=== PATIENT | male | born 1935 | race Caucasian/White ===

== ENCOUNTER → 2017-01-26 | Outpatient (CLI) | payer MEDICARE, OTHER ==
[~2017-01-26] MED LIST: ATACAND16 MG PO; Ativan; CALCIUM CITRATE1 TA5 PO; CENTRUM SILVER1 TA1 PO; ENABLEX15 MG PO; FLEXERIL10 MG PO; LEXAPRO10 MG PO; LORTAB 5/500 501 TAB PO; NAMENDA10 MG PO; Namenda; PERCOCET 325 MG1 TA2 PO; PROPRANOLOL; PROPRANOLOL10 MG PO; VITAMIN C BUFF500 MG PO; VITAMINS
== END ==
LOC: COL.RAD 09:37
DX: K76.89 Other specified diseases of liver (principal); R79.89 Other specified abnormal findings of blood chemistry

== ENCOUNTER 2017-02-01 13:15 | Outpatient (RCR) | payer MEDICARE, OTHER | END 2017-02-08 09:10 | LOC: MKS.ESL.PT 13:15 | DX: R27.0 Ataxia, unspecified (principal); R25.1 Tremor, unspecified | CPT/HCPCS: G8978-GP; G8979-GP ==

== ENCOUNTER → 2017-07-14 | Outpatient (CLI) | payer MEDICARE ==
[~2017-07-14] MED LIST changes: +CALCIUM CITRAT950 MG PO; +DETROL 2MG TAB2 MG PO; +INDERAL 10MG10 MG PO; +MS CONTIN 330 MG/TAB PO; +NEURONTIN300 MG/CAP PO; +OMEGA-3 1000 MG1 CAP PO; +SINEMET 25/101 UDTAB PO; +VISION VITAMINS1 TA1 PO; +VITAMINC1000TA PO
== END ==
LOC: COL.PUL 10:29
DX: R06.02 Shortness of breath (principal)

== ENCOUNTER 2017-08-19 12:55 | Outpatient (CLI) | payer MEDICARE ==
[2009-05-07 07:19] VITALS: BP 119/78
[~2017-08-19] VITALS: Ht 172.7 cm; Wt 74.0 kg
[~2017-08-19 12:55] MED LIST changes: +ATACAND 16M16 MG/TAB PO; -ATACAND16 MG PO; -CALCIUM CITRATE1 TA5 PO; +CALCIUM CITRATE1 TA7 PO; -CENTRUM SILVER1 TA1 PO; +CENTRUM SILVER1 TAB PO
[2017-08-19 14:08] VITALS: BP 149/75; PULSE 53; TEMP 97.4
[2017-08-19] MEDS ORDERED: INDERAL 10MG10 MG PO (16:11)
[2017-08-19] MEDS ORDERED: EFFEXOR 75M75 MG/TAB PO (16:12)
[2017-08-19] MEDS ORDERED: METHADONE H10 MG/TAB PO (16:13)
[2017-08-19] MEDS ORDERED: ARICEPT10 MG PO (16:13)
[2017-08-19] MEDS ORDERED: MOVANTIK25 MG PO (16:14)
[2017-08-19] MEDS ORDERED: PERCOCET 325 MG1 TA2 PO (16:15)
[2017-08-19] MEDS ORDERED: COLACE 100100 MG/CAP PO (16:15)
[2017-08-19] MEDS ORDERED: MYSOLINE 5050 MG/TAB PO (16:15)
== END 2017-08-19 16:22 | disposition home or self-care (01) ==
LOC: EUO 12:55
DX: N39.41 Urge incontinence (principal)

== ENCOUNTER 2019-08-29 09:59 | Inpatient (IN) | payer MEDICARE ==
[~2019-08-29] VITALS: Ht 175.3 cm; Wt 84.0 kg
[~2019-08-29 09:59] MED LIST changes: +ARICEPT10 MG PO; +COLACE 100100 MG/CAP PO; +EFFEXOR XR75 MG/CAP PO; +KRILL OIL 1,001 EAC1 PO; +METHADONE H10 MG/TAB PO; +MOVANTIK25 MG PO; +MYSOLINE 5050 MG/TAB PO
[2019-08-29 10:57] LABS: INR 1.1 (0.8-3.0); PROTHROMBIN TIME 13.4 SECONDS (9.7-12.8)
[2019-08-29 11:00] LABS: PARTIAL THROMBOPLASTIN TIME 29.8 SECONDS (26.0-37.0)
[2019-08-29 11:03] LABS: ALANINE AMINOTRANSFERASE 7 U/L (4-49); ALBUMIN 3.6 gm/dL (3.5-5.0); ALKALINE PHOSPHATASE 172 U/L (50-136); ANION GAP 6 mmol/L (7-16); AST,SGOT 51 U/L (15-37); BLOOD UREA NITROGEN 8 mg/dL (9-20); CALCIUM 8.6 mg/dL (8.4-10.2); CARBON DIOXIDE 35 mmol/L (22-30); CHLORIDE 94 mmol/L (98-107); CREATININE, serum 1.06 (0.66-1.25); GLUCOSE 117 mg/dL (74-106); LIPASE 371 U/L (23-300); POTASSIUM 3.2 mmol/L (3.4-5.0); SODIUM 134 mmol/L (137-145); TOTAL PROTEIN 7.1 gm/dL (6.4-8.2)
[2019-08-29 11:14] LABS: TROPONIN-I < 0.012 ng/mL (0.000-0.035)
[2019-08-29] MEDS ORDERED: MYSOLINE 5050 MG/TAB PO (11:27)
[2019-08-29] MEDS ORDERED: DITROPAN XL 5MG5 M1 PO (11:30)
[2019-08-29] MEDS ORDERED: ARICEPT10 MG PO (11:30)
[2019-08-29 11:31] LABS: BASO % 0.3 % (0.0-2.0); EOS # 0.4 (0.0-0.7); EOS % 3.9 % (0-4.0); GRAN # 5.2 (1.4-6.5); GRAN % 57.7 % (42.2-75.2); HEMATOCRIT 42.6 % (42.0-52.0); HEMOGLOBIN 14.1 g/dl (13.5-18.0); LYMPH # 2.3 (1.2-3.4); LYMPH % 26.1 % (20.0-51.0); MEAN CELL VOLUME 98 fl (80.0-100.0); MEAN CORPUSCULAR HEMOGLOBIN 32 pg (27.0-31.0); MEAN CORPUSCULAR HGB CONC 33 g/dl (33.0-37.0); MEAN PLATELET VOLUME 10.8 fl (7.4-10.4); MONO % 11.6 % (1.7-9.3); PLATELET COUNT 122 K/mm3 (130-400); RED BLOOD COUNT 4.35 M/mm3 (4.20-5.60); REDCELL DISTRIBUTION WIDTH-CV 13.4 % (11.5-14.5)
[2019-08-29] MEDS ORDERED: FLOMAX 0.40.4 MG/CAP PO (11:31)
[2019-08-29] MEDS ORDERED: NEURONTIN100 MG/CAP PO (11:31)
[2019-08-29] MEDS ORDERED: KLONOPIN 0.5MG0.5 MG PO (11:32)
[2019-08-29] MEDS ORDERED: REQUIP 0.5MG0.5 MG PO (11:33)
[2019-08-29 12:13] LABS: COLLECTION METHOD CLEAN CATCH
[2019-08-29 12:20] LABS: MUCOUS Present /lpf; PH 6 (5-8); SQUAMOUS EPITHELIAL None Seen /hpf; URINE APPEARANCE Clear; URINE BACTERIA None Seen /hpf; URINE BILIRUBIN Negative (NEGATIVE); URINE BLOOD Negative (NEGATIVE); URINE COLOR Yellow; URINE GLUCOSE Negative (NEGATIVE); URINE KETONE Trace (NEGATIVE); URINE LEUKOCYTE ESTERASE Negative (NEGATIVE); URINE NITRATE Negative (NEGATIVE); URINE PROTEIN(semi-quant) Negative (NEGATIVE); URINE RBC None Seen /hpf; URINE UROBILINOGEN Negative (NEGATIVE)
--- NOTE | 2019-08-29 16:51 | NUR ---
REPORT FROM MUNA MUD JACK OPERATOR. PT TO ROOM 355.
[2019-08-29 17:41] VITALS: BP 166/87; PULSE 60; TEMP 98.5
--- NOTE | 2019-08-29 17:52 | NUR ---
pt to room 355 from ED. ASSEMENTS COMPLETE PT ORIENTED TO ROOM. RESTING QUIETLY IN BED, KNEE IMMOBILIZER IN PLACE TO RIGHT KNEE.
[2019-08-29 19:52] VITALS: BP 160/78; PULSE 63; TEMP 97.6
--- NOTE | 2019-08-29 20:00 | NUR ---
Report received. Assumed care for night time nanny. Assessment complete. VS stable. Resting in bed with eyes closed. A&O to self. Confused with one to two word answers-very drowsy. Right lower extremity in immobolizer. Denies pain. Right AC IV-NS@80mls/hr. Head of bead at 30 degrees. Plan of care discussed for this shift to inlcude HS meds/pain meds. Call light in reach. Will monitor.
[2019-08-30] VITALS (7 sets, daily range): BP systolic 121–191; BP diastolic 72–96; PULSE 59–78; TEMP 97.2–98.6
--- NOTE | 2019-08-30 05:11 | NUR ---
Dr Kelley notified of low heart rate on tele. New orders received to decrease rate to 40 on notification. Notified telemetry tech of decrease and order placed.
[2019-08-30 06:39] LABS: BASO % 0.4 % (0.0-2.0); EOS # 0.3 (0.0-0.7); EOS % 3.5 % (0-4.0); GRAN # 4.1 (1.4-6.5); GRAN % 54.6 % (42.2-75.2); HEMATOCRIT 43.9 % (42.0-52.0); HEMOGLOBIN 14.2 g/dl (13.5-18.0); LYMPH # 2.5 (1.2-3.4); LYMPH % 32.5 % (20.0-51.0); MEAN CELL VOLUME 99 fl (80.0-100.0); MEAN CORPUSCULAR HEMOGLOBIN 32 pg (27.0-31.0); MEAN CORPUSCULAR HGB CONC 32 g/dl (33.0-37.0); MEAN PLATELET VOLUME 10.4 fl (7.4-10.4); MONO # 0.7 (0.1-0.6); MONO % 8.9 % (1.7-9.3); PLATELET COUNT 111 K/mm3 (130-400); RED BLOOD COUNT 4.44 M/mm3 (4.20-5.60); REDCELL DISTRIBUTION WIDTH-CV 13.2 % (11.5-14.5)
[2019-08-30 06:50] LABS: CALCIUM 8.6 mg/dL (8.4-10.2); CREATININE, serum 0.99 (0.66-1.25); POTASSIUM 4.4 mmol/L (3.4-5.0)
--- NOTE | 2019-08-30 09:20 | NUR ---
Pt sleeping upon entry, easily awakened, no C/O pain at this time. Shift assessments complete, left Pt call light in reach, bed in lowest position, bed alarm on.
--- NOTE | 2019-08-30 10:21 | NUR ---
Due to the patient's history of dementia, VINCE contacted the patient's , Bety ([phone]) to complete initial intake. The patient lives in [place] with Bety. The patient had a walker and receives assistance with ADLs. The patient's PCP is Dr. Vargas and patient receives medications from [facility]. The patient has advanced directives in the EMR and designate Bety. The patient may be needing post acute rehab due to his right patellar fx. VINCE discussed Medicare.gov's list of post acute rehab facilites with Bety. Bety states the patient would not like to go to a correction for rehab. The first choice is [facility] and second choice is [facility]. Referrals sent. VINCE informed Bety if the patient goes to [facility] the family will have to provide transportation, she is willing to transport. Awaiting responses.
[2019-08-30] MEDS ORDERED: NAMENDA 10MG TA10 MG PO (11:45)
--- NOTE | 2019-08-30 18:33 | NUR ---
Pt resting in the room today, no C/O pain, takes medications without swallowing issues, VS have remained stable.
--- NOTE | 2019-08-30 19:11 | NUR ---
PATIENT RESTING IN BED DURING CHANGE OF SHIFT REPORT FROM DAY SHIFT NURSEESPINOZA. PATIENT WITH NO NEEDS REPORTED. BED ALARM ON.
--- NOTE | 2019-08-30 22:14 | NUR ---
PATIENT REQUESTING TYLENOL FOR PAIN, PATIENT ALREADY TAKING METHADONE.
--- NOTE | 2019-08-30 23:00 | NUR ---
PATIENT RESTING WITH EYES CLOSED, DOES NOT AWAKEN WHEN ROOM ENTERED BY STAFF, BREATHING OBSERVED NONLABORED AND EVEN. BED ALARM ON.
[2019-08-31 01:20] VITALS: BP 112/66; PULSE 68; TEMP 98.2
[2019-08-31 04:02] VITALS: BP 153/84; PULSE 67; TEMP 98.1
[2019-08-31 06:41] LABS: BASO % 0.5 % (0.0-2.0); EOS # 0.3 (0.0-0.7); EOS % 4.1 % (0-4.0); GRAN # 3.3 (1.4-6.5); GRAN % 51.8 % (42.2-75.2); HEMOGLOBIN 12.3 g/dl (13.5-18.0); LYMPH # 2.1 (1.2-3.4); LYMPH % 33.5 % (20.0-51.0); MEAN CELL VOLUME 97 fl (80.0-100.0); MEAN CORPUSCULAR HEMOGLOBIN 33 pg (27.0-31.0); MEAN CORPUSCULAR HGB CONC 33 g/dl (33.0-37.0); MEAN PLATELET VOLUME 10.6 fl (7.4-10.4); MONO # 0.6 (0.1-0.6); MONO % 9.9 % (1.7-9.3); PLATELET COUNT 132 K/mm3 (130-400); RED BLOOD COUNT 3.79 M/mm3 (4.20-5.60); REDCELL DISTRIBUTION WIDTH-CV 13.4 % (11.5-14.5)
[2019-08-31 06:43] LABS: HEMATOCRIT 36.8 % (42.0-52.0)
[2019-08-31 06:46] LABS: CALCIUM 8.2 mg/dL (8.4-10.2); CREATININE, serum 1.02 (0.66-1.25); POTASSIUM 3.7 mmol/L (3.4-5.0)
--- NOTE | 2019-08-31 07:57 | NUR ---
PATIENT RESTING IN BED DURING CHANGE OF SHIFT REPORT GIVEN TO DAY SHIFT NURSES, [place]. IVF INFUSING WITH NO PROBLEMS. RLE ELEVATED ABOVE HEART LEVEL. ENCOURAGED PATIENT TO CONTINUE TO C&DB FREQUENTLY THROUGHOUT DAY.
--- NOTE | 2019-08-31 08:01 | NUR ---
PATIENT RESTING IN BED DURING CHANGE OF SHIFT REPORT GIVEN TO DAY SHIFT NURSES, [place]. NO QUESTIONS/CONCERNS REPORTED DURING REPORT.
[2019-08-31 08:05] VITALS: BP 172/98; PULSE 89; TEMP 98.9
--- NOTE | 2019-08-31 08:53 | NUR ---
Patient resting in recliner, call light in reach and chair alarm set. Patient in pleasent mood. He takes pills a few at a time with water. Denies any questions at this time. Will continue to monitor.
--- NOTE | 2019-08-31 11:10 | NUR ---
Call Center Assistant attended clinical rounds with the team. Hospitalist advised patient would benefit from post acute rehab. Patient verbalized understanding and is in agreement. SW spoke with Hospitalist to advised that referrals have been sent to [facility] and [facility]. SW to continue to follow.
[2019-08-31 12:00] VITALS: BP 151/92; PULSE 102; TEMP 98.9
--- NOTE | 2019-08-31 15:19 | NUR ---
Thaw Shed Heater Tender spoke with Zelda, [facility] Director who advised they would likely accept patient and could accept as early as Tuesday. SW to continue to follow.
[2019-08-31 17:58] VITALS: BP 149/93; PULSE 77; TEMP 97.8
--- NOTE | 2019-08-31 18:24 | NUR ---
Patient required touch assist with eating as he needed help with cutting up some foods this morning. Denies pain at this time, was given prn Tylenol with good effect this afternoon. Will continue to monitor. Patient is a max two assist with transfers using gait belt and walker.
[2019-08-31 19:48] VITALS: BP 153/79; PULSE 69; TEMP 98.2
[2019-09-01] VITALS (9 sets, daily range): BP systolic 151–203; BP diastolic 71–105; PULSE 64–84; TEMP 98–98.8
--- NOTE | 2019-09-01 04:15 | NUR ---
Patient has rested off and on throughout the night. Noted to be a little confused about the middle of the night, but is oriented now. Patient incontinent of urine and bed change and incontinent cares completed. Immobilizer to right leg. Patient denies pain and states that the last dose of Tylenol helped a lot. Patient is 2 assist with repositioning. Wears briefs for incontinence. Will continue to monitor patient.
[2019-09-01 07:38] LABS: BASO % 0.3 % (0.0-2.0); EOS # 0.2 (0.0-0.7); EOS % 3.2 % (0-4.0); GRAN # 3.5 (1.4-6.5); GRAN % 59.7 % (42.2-75.2); HEMATOCRIT 37.6 % (42.0-52.0); HEMOGLOBIN 12.6 g/dl (13.5-18.0); LYMPH # 1.6 (1.2-3.4); LYMPH % 26.8 % (20.0-51.0); MEAN CELL VOLUME 96 fl (80.0-100.0); MEAN CORPUSCULAR HEMOGLOBIN 32 pg (27.0-31.0); MEAN CORPUSCULAR HGB CONC 34 g/dl (33.0-37.0); MEAN PLATELET VOLUME 10.7 fl (7.4-10.4); MONO # 0.6 (0.1-0.6); MONO % 9.8 % (1.7-9.3); PLATELET COUNT 144 K/mm3 (130-400); RED BLOOD COUNT 3.92 M/mm3 (4.20-5.60); REDCELL DISTRIBUTION WIDTH-CV 13.3 % (11.5-14.5)
[2019-09-01 07:45] LABS: CALCIUM 8.5 mg/dL (8.4-10.2); CREATININE, serum 1.06 (0.66-1.25); POTASSIUM 3.6 mmol/L (3.4-5.0)
--- NOTE | 2019-09-01 08:00 | NUR ---
Patient in bed resting. Alert and oriented x 3. Assessment complete. Patient Denies pain at this time. Refuses breakfast states he would like to sleep a bit longer. Immobilizer to right leg. Pulses intact. Denies further needs at this time.
--- NOTE | 2019-09-01 11:16 | NUR ---
Incontinent care provided, bed bath provided.
--- NOTE | 2019-09-01 18:50 | NUR ---
Patient has done well through out the day. Has been using urinal without difficulties. Immobilizer in place throughout the day. Minimal needs. Refusing meals today but has been snacking throughout the day. Educated patient on importance of nutrition. Denies further needs at this time. Will report off to time study technologist.
[2019-09-02 00:14] VITALS: BP 160/74; PULSE 62; TEMP 97.8
[2019-09-02 04:12] VITALS: BP 182/80; PULSE 64; TEMP 98
--- NOTE | 2019-09-02 05:45 | NUR ---
Patient finally fell asleep about midnight last night. Patient called frequently for Tylenol specifically. This nurse gave him Percocet after educating him that it wasn't time for Tylenol yet and patient agreed. Patient would then call every 15 minutes and ask for the Tylenol that he "knew we had out there, if we would just bring it to him". Patient was complaining of pain to back of his neck. Patient educated that he could not have more Tylenol until 2330. After administering the PRN Tylenol at 2330 patient fell asleep. Patient required complete bed change d/t incontinence and then was able to get up to the commode to have a bowel movement with 2 assist from staff. At 0412 patient's blood pressure 182/80, P: 64. Apresoline 10mg PRN given at 0500. At 0530, blood pressure noted to be 178/92. Will recheck blood pressure again. Awaiting a call back from Sheila Bullock APRN to update on situation. Will conitnue to monitor.
[2019-09-02 06:40] LABS: BASO % 0.3 % (0.0-2.0); EOS # 0.2 (0.0-0.7); EOS % 2.1 % (0-4.0); GRAN # 5.4 (1.4-6.5); GRAN % 62.5 % (42.2-75.2); HEMATOCRIT 43.5 % (42.0-52.0); LYMPH # 2.2 (1.2-3.4); LYMPH % 25.7 % (20.0-51.0); MEAN CELL VOLUME 95 fl (80.0-100.0); MEAN CORPUSCULAR HEMOGLOBIN 32 pg (27.0-31.0); MEAN CORPUSCULAR HGB CONC 34 g/dl (33.0-37.0); MEAN PLATELET VOLUME 10.2 fl (7.4-10.4); MONO # 0.8 (0.1-0.6); MONO % 8.9 % (1.7-9.3); PLATELET COUNT 149 K/mm3 (130-400); REDCELL DISTRIBUTION WIDTH-CV 13.5 % (11.5-14.5)
[2019-09-02 06:41] LABS: HEMOGLOBIN 14.6 g/dl (13.5-18.0)
[2019-09-02 06:43] LABS: CALCIUM 9.1 mg/dL (8.4-10.2); CREATININE, serum 1.12 (0.66-1.25); POTASSIUM 3.9 mmol/L (3.4-5.0)
[2019-09-02 07:50] VITALS: BP 172/93; PULSE 78; TEMP 98.2
--- NOTE | 2019-09-02 08:20 | NUR ---
Patient resting in bed. Provided him with incontinece care this am. He was soiled with urine. Encouraged him to use urinal. Fresh linens provided. He sat up for breakfast, he does not have much interest in food. Int. He is mostly just wanting to rest today. Lito moreland.
[2019-09-02] MEDS ORDERED: ZESTRIL40 MG PO (09:57)
[2019-09-02] MEDS ORDERED: NORVASC 5MG5 MG/TAB PO (11:28)
[2019-09-02] MEDS ORDERED: TYLENOL 325MG325 MG PO (11:28)
[2019-09-02 11:49] VITALS: BP 144/94; PULSE 109; TEMP 98.3
--- NOTE | 2019-09-02 11:54 | NUR ---
Hospitalist team has rounded. Plans for [facility] admission today. Patient resting in chair, request assist to use bedside commode. voiding. ready for lunch.
--- NOTE | 2019-09-02 14:21 | NUR ---
PATIENT USED COMMODE, BOWEL MOVMENT. ASSISTED BACK TO BED. WILL ADMIT TO [facility] STATUS
== END 2019-09-02 14:21 | DRG 92 ==
LOC: COL.ER 09:59 → MEDICAL 14:18
PROVIDERS: Emergency Medicine; Physician Assistant
DX: G92 Toxic encephalopathy (principal); S82.001A Unspecified fracture of right patella, initial encounter for closed fracture; E87.2 Acidosis; T50.905A Adverse effect of unspecified drugs, medicaments and biological substances, initial encounter; G20 Parkinson's disease; F02.80 Dementia in other diseases classified elsewhere, unspecified severity, without behavioral disturbance, psychotic disturbance, mood disturbance, and anxiety; E87.6 Hypokalemia; I10 Essential (primary) hypertension; G31.9 Degenerative disease of nervous system, unspecified; G89.29 Other chronic pain; W18.30XA Fall on same level, unspecified, initial encounter; Z79.891 Long term (current) use of opiate analgesic; Z87.891 Personal history of nicotine dependence
CPT/HCPCS: 99232-AI; 99239; A9284; J0360; J1650; J7030; L1846

== ENCOUNTER 2019-09-02 14:24 | Inpatient (IN) | payer MEDICARE ==
[~2019-09-02] VITALS: Ht 172.7 cm; Wt 79.1 kg
[~2019-09-02 14:24] MED LIST changes: +DITROPAN XL 5MG5 M1 PO; +FLOMAX 0.40.4 MG/CAP PO; +KLONOPIN 0.5MG0.5 MG PO; +NAMENDA 10MG TA10 MG PO; +NEURONTIN100 MG/CAP PO; +NORVASC 5MG5 MG/TAB PO; +REQUIP 0.5MG0.5 MG PO; +TYLENOL 325MG325 MG PO; +ZESTRIL40 MG PO
--- NOTE | 2019-09-02 17:02 | NUR ---
Patient resting in bed. He is now in patient re sanchez status. inital & admission assessment completed as well as med rec. rehab order set started & therapy to start tmrw. patient has chronic pain, meds per orders. He also has parkinsons. He has minimal appetite. will monitor.
[2019-09-02 17:52] VITALS: BP 122/78; PULSE 84; TEMP 98.3
--- NOTE | 2019-09-02 19:15 | NUR ---
PATIENT RESTING IN BED DURING CHANGE OF SHIFT REPORT FROM DAY SHIFT NURSEGILBERTO. BED ALARM ON.
--- NOTE | 2019-09-02 20:00 | NUR ---
PATIENT CONTINUES WITH R KNEE WEAKNESS DUE TO PAIN WITH MOVEMENT WITH NO BRACE. PATIENT REMINDED NOT TO BEND RIGHT KNEE PER DR ORDERS. UP WITH MAX X2 ASSIST FROM STAFF. BED ALARM ON.
[2019-09-02 20:27] VITALS: BP 179/91; PULSE 79; TEMP 98.5
--- NOTE | 2019-09-03 01:27 | NUR ---
PATIENT LAYING ON LEFT SIDE WITH EYES CLOSED, RLE BRACE OFF, DOES NOT AWAKEN WHEN DOOR TO ROOM IS OPENED BY STAFF. OBSERVED BREATHING NONLABORED AND EVEN. BED ALARM ON.
[2019-09-03 05:34] VITALS: BP 145/98; PULSE 64; TEMP 98.3
--- NOTE | 2019-09-03 07:37 | NUR ---
PATIENT RESTING IN BED DURING CHANGE OF SHIFT REPORT GIVEN TO DAY SHIFT NURSELARISA. BED ALARM ON.
--- NOTE | 2019-09-03 08:20 | NUR ---
Patient in bed resting. Alert and oriented x 3. Assessment complete. Tegaderm to skin tears on right upper arm and right shoulder. INT to right AC. Right lower extremity with immobilizer in place. Ecchymosis noted to left hand. Patient states he is not hungry this AM and refusing breakfast. Encouraged patient to increase intake. Assisted patient to insert dentures. Patient refused all of his breakfast except fruit cup at this time.
--- NOTE | 2019-09-03 11:00 | NUR ---
Patient states he is having pain 5/10 to right knee. Medications given per orders.
--- NOTE | 2019-09-03 12:57 | NUR ---
Assisted patient back to bed from recliner. Sat up in recliner for lunch. x2 assist to transfer back to bed.
--- NOTE | 2019-09-03 14:02 | NUR ---
Patient up from therapy, states he is tired and would like to nap for a while.
[2019-09-03 15:57] VITALS: BP 113/73; PULSE 85; TEMP 98.1
--- NOTE | 2019-09-03 16:01 | NUR ---
Surg Nurse met with patient to complete initial intake as patient is new to [facility]. Patient lives in [place] with his , Bety (ph#[phone]) and sees Dr. Vargas for primary care. Patient obtains medications from [facility] in [facility] and reports he uses a front wheeled walker and wheelchair at home. Patient states he is normally pretty independent with ADLS. SW contacted patient's , Bety and left a message. SW to continue to follow.
--- NOTE | 2019-09-03 18:38 | NUR ---
Patient has done well throughout the day. Has been up to recliner for lunch. Napping on and off this afternoon. Denies pain at this time. Immobilized in place to RLE. Patient has been drinking ensures today but not much off of his meal trays. Denies furthe rneeds at this time. Will report off to production shift supervisor.
--- NOTE | 2019-09-03 20:00 | NUR ---
At time of assessment, patient is awake in bed. He is alert and oriented, complaining of pain 6/10 in his back and neck. Scheduled methadone was soon administered and he says this did not touch his pain. He requests to take Tylenol. His lung sounds are clear and heart sounds normal/regular. No edema is present. He wears an immobilizer on his R knee. Will continue to monitor.
[2019-09-03 21:03] VITALS: BP 130/78; PULSE 86; TEMP 98.8
--- NOTE | 2019-09-04 04:50 | NUR ---
Patient has had a restful night. After evening medications and being incontinent of urine once, he went to sleep around 1000 and has been asleep since. Prior to falling asleep he did complain of neck and back pain but the medications seemed to help with that. Knee immobilizer has been left on, as he tends to want to bend his knee in bed. He does have tremors and cannot feel when he has been incontinent due to Parkinson's. Will continue to monitor.
[2019-09-04 05:41] VITALS: BP 157/84; PULSE 72; TEMP 98.6
[2019-09-04 16:39] VITALS: BP 138/81; PULSE 71; TEMP 98.3
--- NOTE | 2019-09-04 18:00 | NUR ---
Patient has been doing well today. He is incontinent. He is worried abut discharging and needing help using the restroom. Explained that is why he is getting rehab to be able to get up easier. He stated he continues to have pain but it is better this afternoon. Assisted with he meals today, he is not able to cut up his meat on his own. His has been updated on his condition. No other changes a this time. Call light within reach.
--- NOTE | 2019-09-05 00:11 | NUR ---
PATIENT SLEEPING, DOES NOT AWAKEN WHEN ROOM ENTERED BY STAFF, BED ALARM ON. BREATHING OBSERVED NONLABORED AND EVEN.
--- NOTE | 2019-09-05 02:17 | NUR ---
PATIENT SLEEPING, DOES NOT AWAKEN WHEN ROOM ENTERED BY STAFF. OBSERVED BREATHING NONLABORED AND EVEN. BED ALARM ON.
[2019-09-05 05:38] VITALS: BP 163/73; PULSE 65; TEMP 98.1
--- NOTE | 2019-09-05 07:37 | NUR ---
PATIENT RESTING IN BED DURING CHANGE OF SHIFT REPORT GIVEN TO DAY SHIFT NURSEMARLI. BED ALARM ON.
--- NOTE | 2019-09-05 08:49 | NUR ---
Sitting up in bed eating breakfast. Alert and oriented but confused on some questions. Rates pain in lower back 01/16, chronic issue for patient. Scheduled methadone administered. Patient denies further needs or concerns.
--- NOTE | 2019-09-05 09:53 | NUR ---
Continues to rate pain 9/10 in low back. Administered Tylenol as prescribed.
--- NOTE | 2019-09-05 10:53 | NUR ---
Patient in room working with occupational therapy.
--- NOTE | 2019-09-05 13:21 | NUR ---
Sitting up in chair. Rates pain at this time 08/16. Denies any further needs at this time.
--- NOTE | 2019-09-05 15:31 | NUR ---
Admission QIM scores were reviewed by the team. Code of 4 for eating was determined by team discussion to be the most usual performance before interventions for this patient during the assessment period. Code of 1 chosen for toileting transfers was determined by team discussion to be the most usual performance before interventions for this patient during the assessment period. Code of 2 chosen for lying to sitting on side of bed was determined by team discussion to be the most usual performance for this patient during the assessment period.--Zelda Roblero, PD
--- NOTE | 2019-09-05 16:20 | NUR ---
Pai Gow Manager contacted patient's , Bety to review team conference notes. Bety expressed concerns about patient's pain management and methadone dosage. Bety also states she is worried that patient is depressed as he has been complaining of pain and that he wants a catheter. VINCE and Bety discussed equipment needs. Bety reports patient has a three wheeled walker and four wheeled walker at home but she wonders if these are appropriate for patient. VINCE will follow up with therapy team. Bety also feels she will need grab bars installed at home. VINCE advised Bety that these items are not covered by Medicare and reviewed some prices with her. Bety reports she does not have any family that can install them for her but may have a neighbor that could help. VINCE scheduled family meeting with Bety for 09/10/19 at 1130. VINCE provided time to [facility] Director, Zelda. VINCE explained purpose of family meetings and encouraged Bety that this would be an opportunity to discuss any concerns or questions with the entire team. Bety requested a copy of team conference notes. VINCE provided via email ( ). VINCE provided patient's new room number to Bety. VINCE attempted to provide copy of team conference notes to patient but he was on the commode. VINCE will provide notes tomorrow.
[2019-09-05 17:50] VITALS: BP 118/79; PULSE 84; TEMP 98.6
--- NOTE | 2019-09-05 18:12 | NUR ---
Patient was a two person transfer from bed to bed side commode using gait belt. Patient sat on the BSC with call light near him and used his call light effectively. Patient was then just a one person assist from BSC to bed. He was a touch assist with eating needed help cutting up meat. Will continue to monitor.
--- NOTE | 2019-09-05 19:30 | NUR ---
PATIENT RESTING IN BED DURING CHANGE OF SHIFT REPORT FROM DAY SHIFT NURSEMACARIO. BED ALARM ON. RIGHT LEG BRACE CONTINUES.
--- NOTE | 2019-09-05 19:58 | NUR ---
Patient handled the transfer from Medical unit to [facility] unit with ease this afternoon. Patient was instructed on new area and therapies. Tolerated diet well this evening drinking his nutrition drink with his supper. Reported off to night nurse.
--- NOTE | 2019-09-05 21:38 | NUR ---
REMOVED SALINE LOCK TO RIGHT AC SITE WITH NO PROBLEM. BED ALARM ON.
--- NOTE | 2019-09-06 01:30 | NUR ---
PATIENT SLEEPING, DOES NOT AWAKEN WHEN ROOM ENTERED BY STAFF. OBSERVED BREATHING NONLABORED AND EVEN. BED ALARM ON.
[2019-09-06 05:44] VITALS: BP 159/86; PULSE 59; TEMP 97.9
--- NOTE | 2019-09-06 07:15 | NUR ---
PATIENT RESTING IN BED DURING CHANGE OF SHIFT REPORT GIVEN TO DAY SHIFT NURSELALA. BED ALARM ON.
--- NOTE | 2019-09-06 08:53 | NUR ---
PT UP TO WHEEL CHAIR FOR BREAKFAST, OUT TO THERAPY PER PROTOCOLS. KNEE IMOBILIZER IN PLACE. PT ATE BREAKFAST WITH NO COMPLAINTS.
--- NOTE | 2019-09-06 11:17 | NUR ---
Manager Park met with patient to review and provide copy of team conference notes. SW advised that the team will reevaluate next week to set a discharge date. SW also advised that family meeting with patient's will occur on Tuesday and patient states this is fine. SW to continue to follow.
[2019-09-06 17:32] VITALS: BP 132/80; PULSE 76; TEMP 98.9
--- NOTE | 2019-09-06 20:00 | NUR ---
At time of assessment, patient is awake in bed. He is alert and oriented, lungs are clear, heart sounds normal/regular. He wears a brace on the R knee. She has been incontinent of urine and is changed at this time. He requests his evening methadone to help with his chronic pain. No concerns at this time, will continue to monitor.
--- NOTE | 2019-09-07 05:54 | NUR ---
Patient had an uneventful night. After evening meds, he has slept throughout the entire night. Will continue to monitor.
[2019-09-07 06:26] VITALS: BP 161/95; PULSE 63; TEMP 98.7
--- NOTE | 2019-09-07 10:42 | NUR ---
NICOLÁS note: PT AOX3. denies pain to rt knee. reports chronic mild pain to lower back, aleviated with scheduled meds and tylenol. tolerated PO. showered with some assistance from therapy. immobilizer on with activity and in bed per pt preference. chronid mild to mod tremor present.
--- NOTE | 2019-09-07 15:24 | NUR ---
Spear Fisher met with patient to follow up before the weekend. Patient states he feels so-so. Patient denies any further questions or concerns. SW contacted patient's , Bety and confirmed date and time for family meeting SW to continue to follow.
[2019-09-07 18:22] VITALS: BP 122/84; PULSE 87; TEMP 98.1
--- NOTE | 2019-09-07 19:00 | NUR ---
SHIFT REPORT FROM LAVERNE Stanley RN
--- NOTE | 2019-09-07 20:00 | NUR ---
PT RESTING IN BED. PLEASANT AND COOPERATIVE. TREMORS FROM PARKINSONS. GAVE TYLENOL FOR BACK DISCOMFORT. TAKES PILLS IN APPLESAUCE. DIAPER CHANGED. BUTTOCKS W/O ANY BREAKDOWN. HOB UP 30 DEGREES. CALL LIGHT IN REACH. BED ALARM SET.
[2019-09-08 04:35] VITALS: BP 124/59; PULSE 65; TEMP 98.3
--- NOTE | 2019-09-08 05:28 | NUR ---
PT HAD A PRETTY RESTFUL NIGHT. INCONT URINE THIS AM. CHANGED BEDDING. NOTED TEGADERM TO POSTERIOR RT SHOUDER W/ HEALING SKIN TEAR. REQUESTED TYLENOL FOR BACK DISCOMFORT. TAKES W/ PUDDING. CALL LIGHT IN REACH. BED ALARM SET.
--- NOTE | 2019-09-08 06:12 | NUR ---
PT HAS HAD SOME MILD TRANSIENT FORGETFULNESS AT TIMES. GAVE TYLENOL FOR EARLIER FOR BACK PAIN. PT SLEEPING NOW.
--- NOTE | 2019-09-08 09:46 | NUR ---
PT REPORTS FEELING TIRED THIS MORNING. REQUIRED CONVINCING TO EAT BREAKFAST..ATE 80%. NO NEW CONCERNS. TOLERATING PO
[2019-09-08 17:35] VITALS: BP 119/74; PULSE 77; TEMP 98.1
--- NOTE | 2019-09-08 21:03 | NUR ---
PT IN BED WITH HOB ELEVATED, A/O X3, HAS PAIN IN LOWER BACK RATED AT 5/10, REFUSES PAIN MEDICATION AT THIS TIME. CALL LIGHT WITHIN REACH.
--- NOTE | 2019-09-09 04:48 | NUR ---
PT SLEEPING WELL WITH HOB ELEVATED TO A 30 DEGREE ANGLE. NO S/S OF PAIN OR DISCOMFORT. PT WOKE UP ONCE DURING THE NIGHT AND WAS ASSISTED WITH REPOSITING, BUT PT HAS REPOSITIONED SELF SINCE THEN. CALL LIGHT WITHIN REACH AND BED ALARM ON.
[2019-09-09 06:15] VITALS: BP 137/73; PULSE 74; TEMP 98.2
[2019-09-09 15:59] VITALS: BP 105/78; PULSE 88; TEMP 98.4
--- NOTE | 2019-09-09 18:00 | NUR ---
Patient did well today. He transfers with one assist, gait belt and walker to [facility]. He did not want to stay sitting up in the chair today because he said the chair is very uncomfortable. No complaints of pain or nausea. Patient continues to be incontinent of urine. He is upset about not know when he has to void. He is worried about going home and making a mess. No other changes at this time. Call light within reach.
--- NOTE | 2019-09-09 19:30 | NUR ---
PATIENT RESTING IN BED DURING CHANGE OF SHIFT REPORT FROM DAY SHIFT NURSESEAN. BED ALARM ON.
--- NOTE | 2019-09-10 00:17 | NUR ---
PATIENT SLEEPING, DOES NOT AWAKEN WHEN ROOM ENTERED BY STAFF, BED ALARM ON. OBSERVED BREATHING NONLABORED AND EVEN.
--- NOTE | 2019-09-10 04:00 | NUR ---
PATIENT SLEEPING, DOES NOT AWAKEN WHEN ROOM ENTERED BY STAFF, OBSERVED BREATHING NONLABORED AND EVEN. BED ALARM ON.
[2019-09-10 06:19] VITALS: BP 137/73; PULSE 59; TEMP 98
--- NOTE | 2019-09-10 07:30 | NUR ---
PATIENT SITTING UP SIDE OF BED DURING CHANGE OF SHIFT REPORT GIVEN TO DAY SHIFT NURSE BED ALARM ON.
--- NOTE | 2019-09-10 08:47 | NUR ---
BREAKFAST CUT UP FOR PT, PT NOT ABLE TO DO THIS ON HIS OWN, PT FED HIMSELF, SPILLED COFFEE, PT TOOK MEDICATIONS IN PUDDING, PT REQUIRED ASSISTANCE LIFTING LEGS ONTO BED TO LAY DOWN, LUNGS CLEAR, BS+, PULSES GOOD, REQUESTED TYLENOL BEFORE THERAPY, NOT STATING MUCH PAIN AT MOMENT, PT ATE 100% OF BREAKFAST, NO OTHER NEEDS AT THIS TIME.
--- NOTE | 2019-09-10 10:39 | NUR ---
TEGADERM OVER SKIN TEAR ON RU BACK WAS CHANGED. SKIN TEAR PALE PINK IN COLOR, HEALING WELL.
--- NOTE | 2019-09-10 14:09 | NUR ---
Beaming Inspector participated in family conference which included IPR Director Zelda, patient's Bety, and PT/OT/ST. Zelda opened the meeting by explaining it's purpose then PT/OT/ST reviewed patient's progress and some recommendations for discharge. Bety had questions about patient's labs which were answered by Zelda. Bety spoke with PT/OT about walker recommendations. CAMILLA Albert advised that she would recommend a front wheeled walker. Following the meeting, VINCE spoke with Bety who selected [facility]. VINCE will follow up on order for FWW at team conference on Tuesday.
--- NOTE | 2019-09-10 16:31 | NUR ---
PT REPORTING PAIN 3/10 IN SHOULDER. PT UTILIZES PUDDING TO TAKE PILLS WITH, PT EATING REST OF PUDDING A SNACK. PT INDEPENDENT IN EATING WHEN FOOD DOES NOT HAVE TO BE CUT UP FOR HIM.
[2019-09-10 16:49] VITALS: BP 116/76; PULSE 77; TEMP 97.2
--- NOTE | 2019-09-10 17:23 | NUR ---
PT IN BED CURRENTLY. PT ALERT MOST OF DAY. UNEVENTFUL SHIFT, MEETING WITH FAMILY PERFORMED TODAY. PT REPORTING PAIN 3/10 IN SHOULDER, PT NOT COMPLAINING OF PAIN IN KNEE. NO OTHER NEEDS AT THIS TIME. DINNER TRAY SET UP IN ROOM.
--- NOTE | 2019-09-10 18:35 | NUR ---
PT REPORT RECEIVED AT BEDSIDE FROM SONI MUNSON. PT DENIES ANY WANTS/NEEDS AT THIS TIME. CALL LIGHT IS AT PT SIDE. NO S/S OF DISTRESS NOTED. PT DENIES PAIN AT THIS TIME. WILL CONTINUE TO MONITOR.
--- NOTE | 2019-09-10 22:23 | NUR ---
PT IS A&OX4 AND EASILY MAKES WANTS/NEEDS KNOWS. PT DEVELOPED SOME PAIN BETWEEN SHIFT CHANGE AND HS MED PASS AND REQUIRED HIS PRN APAP DUE TO SOME MILD PAIN. PT IS COOPERATIVE WITH CARE AND COMPLIANT WITH MEDICATION REGIMEN. PT IS ABLE TO EFFECTIVELY USE CALL LIGHT TO NOTIFY STAFF OF HIS WANTS/NEEDS. PT REQUESTED THAT HE CONTINUE TO WEAR LEG BRACE IMMOBILZER WHILE IN BED. PT IS NOTED TO HAVE A SMALL SKIN TEAR TO HIS RIGHT SHOULDER BLADE THAT IS COVERED WITH TEGADERM AND A HEALING TRAUMA WOUND TO HIS RIGHT UPPER ARM THAT IS OPEN TO AIR AND IS COVERED BY SCAB LIKE TISSUE (NOT ESCHAR). WITH TOILETING PT REQUIRES ASSISTANCE TO COME TO A FULL SITTING POSITION AT THE SIDE OF HIS BED, WELL STANDBY ASSIST TO COME TO HIS FEET, BALANCE WHILE PULLING DOWN HIS PANTS/UNDERPANTS, ASSISTANCE COMING BACK TO A STANDING POSITION, PULLING PANTS BACK UP, AND TRANSFERING BACK TO BED. EARLIER IN THE SHIFT PT NOTIFIED THIS ASSOCIATE TEACHER THAT HE NEEDED TO USE THE COMMODE FOR A BM (PT PRODUCED A GOOD SIZED, MEDIUM, WELL FORMED, FIRM BM) AND WHILE TRANSFERING THIS ASSOCIATE TEACHER NOTED THAT THE MIKEL WAS SATURATED WITH URINE. THIS ASSOCIATE TEACHER ASSISTED PT WITH CHANGING HIS BRIEF AND PANTS, PERFORMING NAZARIO-CARE/TOILETING HYGIEME, AND PUTTING CLEAN BRIEFS AND PANTS BACK ON. THIS ASSOCIATE TEACHER ALSO PLACED A MALE URINARY WRAP PAD AROUND PT'S GENITALS TO HELP ABSORB URINE. PT IS NOTED TO TAKE METHADONE THROUGHOUT THE DAY AND AT HS AND THIS MEDICATION, PER REPORT, "KNOCKS HIM OUT" AND MAKES IT DIFFICULT FOR PT TO BE AROUSED BY THE NEED TO VOID. CALL LIGHT IS CURRENTLY AT PT SIDE, BEDSIDE TABLE HAS BEVERAGES AVAILABLE ON IT AND WITHIN REACH. WILL CONTINUE TO MONITOR. NO S/S OF DISTRESS NOTED.
--- NOTE | 2019-09-11 03:20 | NUR ---
PT NOTWED TO BE PEACEFULLY ASLEEP WITH NO S/S OF DISTRESS NOTED. PT MALE INCONTINENT PAD/WRAP CHECKED AND URINE NOTED. PAD/WRAP CHANGED AND NAZARIO-CARE PROVIDED. PT SLEPT PEACEFULLY THROUGHOUT PROVIDED CARE. CALL LIGHT IS WITHIN REACH. WILL CONTINUE TO MONITOR.
[2019-09-11 06:16] VITALS: BP 153/86; PULSE 65; TEMP 97.7
--- NOTE | 2019-09-11 06:23 | NUR ---
PT HAS REMAINED IN A PEACEFUL QUIET STATE THROUGHOUT THE SHIFT. PT HAS APPEARED TO BE SLEEPING DURING THE NIGHT BUT WAS EASILY AROUSED WHEN THIS BRICK STACKER WAS ATTEMPTING TO WAKE HIM UP. AT THIS TIME PT IS RESTING IN BED WITH EYES CLOSED AFTER WAKING UP DURING VS WHEN THIS BRICK STACKER NEEDED TO OBTAIN AN ORAL TEMP. CALL LIGHT WITHIN REACH. NO S/S OF DISTRESS NOTED. WILL CONTINUE TO MONITOR.
--- NOTE | 2019-09-11 08:00 | NUR ---
Patient resting in bed. Nursing staff woke patient up and assisted with getting ready for the day. Patients bed was soaked with urine, patient was unaware that he urinated in bed. Also stated that he was cold. Patient was half covered with the bed sheet. Patient A&Ox3. VSS Reporting pain in lower back 10/16, tylenol requested. Patient needed cueing to move legs onto the edge of bed. Nursing staff also instructing patient to call for assistance when needing to use the bathroom. Gait belt and walker 1x assist to recliner. Immobilizer on right leg with yellow socks. Patient had visual tremors in hands and ate breakfast independently. Bed sheets changed. Chair alarm on, call light within reach.
[2019-09-11 16:50] VITALS: BP 111/64; PULSE 78; TEMP 97.8
--- NOTE | 2019-09-11 17:34 | NUR ---
Patient had an uneventful day. Worked with PT, Ot, and ST and tolerated well. Complaints of pain in right leg, requested pain medication x1 and to loosen immobilizer while sitting in recliner. Has been incontinent of urine and continent of urine. Nursing staff has been encouraging patient to call when needing to use the bathroom. Patient has called several times to use the bathroom and with gait belt/walker and 1xassist has ambulated to the bathroom. No further needs expressed from the patient. Call light within reach. Fall precautions in place.
--- NOTE | 2019-09-11 19:30 | NUR ---
PATIENT UP IN CHAIR DURING CHANGE OF SHIFT REPORT FROM DAY SHIFT NURSEPOOL. BED ALARM ON.
--- NOTE | 2019-09-12 01:00 | NUR ---
PATIENT SLEEPING, DOES NOT AWAKEN WHEN ROOM ENTERED BY STAFF. OBSERVED BREATHING NONLABORED AND EVEN. BED ALARM ON.
[2019-09-12 04:56] VITALS: BP 114/69; PULSE 61; TEMP 97.6
--- NOTE | 2019-09-12 07:30 | NUR ---
PATIENT RESTING IN BED DURING CHANGE OF SHIFT REPORT GIVEN TO DAY SHIFT NURSESILVERIO. BED ALARM ON.
--- NOTE | 2019-09-12 09:49 | NUR ---
Patient is alert and oriented. denies any pain. ecchymosis on his right hand. tolerate physical therapy well. heart sound is normal, breath sound is clear. dry, thin skin. right leg brace. small bm this morning.
--- NOTE | 2019-09-12 16:04 | NUR ---
Federal Java Developer met with patient to review team conference notes. SW advised patient that discharge is scheduled for Tuesday and that recommendation is for Home Health PT/OT. Patient is in agreement. SW followed up with patient's , Bety to provide update. Bety is in agreement with discharge date and recommendations. Bety will review Medicare.gov list of HH agencies and VINCE will follow up with her and patient Tuesday on HH choice.
[2019-09-12 17:31] VITALS: BP 132/61; PULSE 75; TEMP 97.6
--- NOTE | 2019-09-12 17:45 | NUR ---
Alert and oriented. left hand have some redness. Patient tolerate therapy well today. 1 assist to stand up. need asssitance with meal setup, feed self. urine continent. denies any pain. right leg braces removed when in bed. Bed alarm on, call light within reach.
[2019-09-13 05:48] VITALS: BP 159/81; PULSE 65; TEMP 97.9
--- NOTE | 2019-09-13 05:50 | NUR ---
PATIENT RESTED THROUGH THE NIGHT WITH NO COMPLAINTS NOTED. INCONTINENT CARE WAS PROVIDED THIS MORNING. WILL REPORT OFF TO DAY SHIFT
--- NOTE | 2019-09-13 15:23 | NUR ---
Patient resting in bed at this time, call light in reach and bed alarm is set. He attended all therapies today. Denies any questions at this time.
--- NOTE | 2019-09-13 15:27 | NUR ---
Therapy recommended that patient continue to have brace on when in bed, but it can be put on loosly. Will continue to monitor any discomfort from immobilizer wear.
[2019-09-13 15:42] VITALS: BP 126/77; PULSE 85; TEMP 98.6
--- NOTE | 2019-09-13 21:15 | NUR ---
Received report from [facility]. Alert and oriented. Denies any pain or discomfort at this time. Meds administered as ordered. SBA with walker to BR. Briefs changed. BUE tremors observed. Made pt comfortable in bed. Needs met. Call light within reach.
[2019-09-14 05:29] VITALS: BP 109/67; PULSE 67; TEMP 98.1
[2019-09-14 07:46] VITALS: BP 115/78
--- NOTE | 2019-09-14 13:37 | NUR ---
Patient resting in recliner, call light in reach and chair alarm set. Patient denies pain at this time. Will continue to monitor.
[2019-09-14 16:04] VITALS: BP 118/73; PULSE 80; TEMP 97.8
--- NOTE | 2019-09-14 16:28 | NUR ---
The patient's , Bety, contacted VINCE to inform that she has chosen the home health agency, [facility] out of [place]. VNICE contacted and faxed a referral to Judy at [facility]. VINCE awaiting their screen.
--- NOTE | 2019-09-14 18:55 | NUR ---
PT REPORT RECIEVED FROM DAYSHIFT NURSE AT BEDSIDE. PT IS SITTING IN HIS RECLINER WATCHING TV WITH CALL LIGHT AT HIS SIDE. PT DENIES PAIN, WANTS, OR NEEDS AT THIS TIME. WILL CONTINUE TO MONITOR.
--- NOTE | 2019-09-14 20:22 | NUR ---
Patient resting in bed at this time. He attended all therapies today. Patient required help with opening up food containers and cutting up food for each meal. Patient visited with his family via the phone a few times today. Patient's bottom is having some pink to it and applied barrier cream to area. Patient takes pills a few at a time and swallows whole. He denied any questions at this time.
--- NOTE | 2019-09-14 20:55 | NUR ---
PT PRESENTS IN HIS RECLINER WATCHING TV. PT IS COOPERATIVE WITH CARE, IS A&OX4, REMAINS IN STABLE CONDIITON, AND IS ABLE TO MAKE WANTS/NEEDS KNOWN BY USING THE CALL LIGHT SYSTEM. PT IS WEARING HIS RIGHT LEG IMMOBILZER. PT CONTINUES TO HAVE SOME PAIN IN HIS RIGHT HIP THAT HE RATES A 2-3/10. PT IS ABLE TO REPOSITION HIMSELF IN THE RECLINER BUT NEEDS ASSISTANCE TO COME TO A FULLY STANDING POSITION. CALL LIGHT IS AT PT SIDE. WILL CONTINUE TO MONITOR.
--- NOTE | 2019-09-14 22:10 | NUR ---
PT COMPLIANT WITH MEDICATION REGIMEN. ADULT BRIEF CHECKED AND NOTED TO BE CLEAN DRY AND INTACT. INCONTINENT PAD PLACED IN BRIEF AROUND PENIS TO HELP MAINTAIN PT'S DRYNESS DUE TO URINARY INCONTINENCE WHILE SLEEPING. CALL LIGHT AT SIDE. WILL CONTINUE TO MONITOR.
--- NOTE | 2019-09-15 00:43 | NUR ---
PT RESTING IN BED PEACEFULLY WITH EYES CLOSED AND NO S/S OF DISTRESS OR PAIN NOTED. CALL LIGHT IS AT PT SIDE. WILL CONTINUE TO MONITOR.
--- NOTE | 2019-09-15 03:21 | NUR ---
Pt IS IN BED WITH EYES CLOSED AND WHEN THIS ENGINE TESTER WAS CHANGING HIS INCONTINENT PAD THAT WAS NOTED TO BE WET WITH URINE Pt WAS EASILY AROUSED BUT ALSO EASILY RETURNED TO RESTING PEACEFULLY WITH EYES CLOSED AND NO S/S OF DISTRESS NOTED. CALL LIGHT AT Pt SIDE. WILL CONTINUE TO MONITOR.
--- NOTE | 2019-09-15 05:38 | NUR ---
Pt has had a quiet night with no s/s of distress and no pain that has required PRN pain medication or other interventions. Call light is lying at Pt's side and bedside table is at bedside with personal belongings anfd beverage available. No s/s of distress noted. Will continue to monitor. Pt is currently resting in bed with eyes closed and a regular respiratory rate and rhythym noted.
[2019-09-15 06:09] VITALS: BP 128/56; PULSE 64; TEMP 98.3
--- NOTE | 2019-09-15 08:30 | NUR ---
PATIENT AT SIDE OF BED FOR BREAKFAST. HE IS COOPERATIVE. HE DOES NEED ASSISTANCE TO TAKE ORAL MEDICATIONS THIS MORNING, HANDS WERE SHAKING ALOT SO I GAVE HIM 3-4 PILLS AT A TIME PER HIS REQUEST AND HE SWOLLOWED WITHOUT DIFFICULTY WITH WATER THAT HE WAS ABLE TO HOLD. HE WAS ABLE TO LAY BACK DOWN IN THE BED WITHOUT ASSISTANCE BUT WAS NOT ABLE TO GET HIMSELF UP IN THE BED. TOTAL ASSISTANCE X1 TO BOOST UP IN THE BED.
--- NOTE | 2019-09-15 09:37 | NUR ---
PATIENT SLEEPING IN BED. NO SIGNS OF DISTRESS NOTED
[2019-09-15 15:28] VITALS: BP 139/121; PULSE 87; TEMP 98.4
[2019-09-15 15:31] VITALS: BP 114/70
--- NOTE | 2019-09-15 18:40 | NUR ---
PATIENT AMBULATES TO THE RESTROOM AND TO BED WITHOUT DIFFICULTY. DENIES PAIN AT THIS TIME.
--- NOTE | 2019-09-16 03:47 | NUR ---
RESTING QUIETLY/SLEEPING MOST OF THE NIGHT. NO N/V. TYLENOL FOR GENERAL DISCOMFORT.
[2019-09-16 06:06] VITALS: BP 138/77; PULSE 63; TEMP 97.8
--- NOTE | 2019-09-16 07:00 | NUR ---
Report rcvd from [facility]. Pt is sleeping in bed at time of report, but is easily woken up from speaking in the room. Pt declines needs at this time. [facility] checked pt brief, it was wet, changed it even though the pt did not believe he was wet and needed to be changed. Pt assessment completed. Call light and personal belongings within reach. No further concerns at this time.
--- NOTE | 2019-09-16 08:55 | NUR ---
Pt took daily medications with applesauce. Pills were whole. Pt swallowed fine without complications. No further concerns.
[2019-09-16 16:42] VITALS: BP 109/72; PULSE 79; TEMP 98
--- NOTE | 2019-09-16 19:14 | NUR ---
PATIENT RESTING IN BED DURING CHANGE OF SHIFT REPORT FROM DAY SHIFT NURSESELIN. NO NEEDS REPORTED.
--- NOTE | 2019-09-16 19:30 | NUR ---
Pt had an uneventful day. Pt did ambulate from the bed to bathroom without pain. Pt had x2 bouts of incontinence, and x1 void in the bathroom. Pt is poor at letting us know when he needs to use the restroom. Report was given to [facility]. Transfer of Care completed.
--- NOTE | 2019-09-16 20:15 | NUR ---
PATIENT DENIES ANY COMPLAINTS. BED ALARM ON.
--- NOTE | 2019-09-17 01:28 | NUR ---
PATIENT SLEEPING, DOES NOT AWAKEN WHEN DOOR TO ROOM IS OPENED BY STAFF, OBSERVED BREATHING NONLABORED AND EVEN. BED ALARM ON.
[2019-09-17 03:59] VITALS: BP 126/78; PULSE 67; TEMP 98
--- NOTE | 2019-09-17 07:18 | NUR ---
PATIENT UP IN CHAIR DURING CHANGE OF SHIFT REPORT GIVEN TO DAY SHIFT NURSEMACARIO. CHAIR ALARM ON.
--- NOTE | 2019-09-17 09:42 | NUR ---
Patient attending therapies this morning. Denies pain this am. Ate 100% of breakfast this morning. Was incontinent of urine this AM, but did ask to use the toilet and did go in the toilet. No BM this morning.
--- NOTE | 2019-09-17 11:32 | NUR ---
Patient working with therapy at this time.
--- NOTE | 2019-09-17 16:37 | NUR ---
VINCE met with the patient and the patient's (via telephone) to revisit the discharge plan. The plan is to go home with [facility]. VINCE contacted Sofy with [facility] and she reports they can accept the patient for PT/OT at discharge. Will continue to follow.
[2019-09-17 17:46] VITALS: BP 90/59; PULSE 88; TEMP 98.5
--- NOTE | 2019-09-17 19:30 | NUR ---
PATIENT UP IN CHAIR DURING CHANGE OF SHIFT REPORT FROM DAY SHIFT NURSEMACARIO. PATIENT PUT TO BED PER PATIENT REQUEST, BED ALARM ON. ADULT DIAPER PANTS DRY, REQUESTED TO HAVE TYLENOL WITH MEDS TONIGHT.
--- NOTE | 2019-09-17 20:00 | NUR ---
DECREASED ROM TO RLE D/T LEG BRACE, TOLERATES FULL WT TO RLE WITH TRANSFERS/AMBULATION WITH NO C/O OR PROBLEMS. DENIES NUMBNESS/TINGLING TO EXTREMITIES. EXIT ALARMS IN USE FOR CHAIR OR BED ACCORDINGLY FOR SAFETY.
--- NOTE | 2019-09-18 01:31 | NUR ---
PATIENT UP TO BATHROOM, ADULT DIAPERS REMAINED DRY. NO CURRENT NEEDS REPORTED WHEN BACK IN BED. BED ALARM ON.
[2019-09-18 06:21] VITALS: BP 130/81; PULSE 60; TEMP 97.8
--- NOTE | 2019-09-18 07:00 | NUR ---
PATIENT SLEEPING IN BED DURING CHANGE OF SHIFT REPORT GIVEN TO DAY SHIFT NURSEMACRAIO. BED ALARM ON.
--- NOTE | 2019-09-18 08:49 | NUR ---
Patient resting in recliner following eating breakfast this morning. Patient was educated on a Parkinsons Program at [facility], but patient reported that he likes to do things on his own and would not be interested in that program. Patient denies pain this morning. Right leg immobilizer is secured and skin to that RLE is CDI. Patient asking when his walker might arrive today. This nurse will check with SW on this.
--- NOTE | 2019-09-18 09:33 | NUR ---
Call placed to VINCE Zhu about patient's walker. Audra reported that his walker would be delivered today prior to him discharging. Patient was updated on this.
--- NOTE | 2019-09-18 11:33 | NUR ---
The patient is to discharge home today, 09/17 with [facility]. VINCE presented the IM form to the patient. The patient understood and signed the form. A copy was provided to the patient and original place in the chart. [facility] to deliver the walker this day prior to 2pm. VINCE faxed orders to Sofy at [facility]. There are no additional needs at this time.
--- NOTE | 2019-09-18 13:46 | NUR ---
Patient resting in recliner, call light in reach and alarm set. Awaiting to get discharged. Patient's walker arrived and patient signed papers for it. Patient Health Summary, Discharge Summary, and Home Meds printed and reviewed with Bety over the phone and patient. Stressed importance of follow up appointments. Called prescriptions for Lisinopril and Amlodipine to pharmacy of choice as these were new meds for patient. Belongings gathered by HAM/Christian including glasses, dentures, clothing, misc. items and shoes.
--- NOTE | 2019-09-18 14:18 | NUR ---
Discharge QIM scores were reviewed by the team. Code of 5 chosen for eating was determined by team discussion to be the most usual performance for this patient during the assessment period. Code of 5 chosen for oral hygiene was determined by team discussion to be the most usual performance for this patient during the assessment period. Code of 6 chosen for rolling left to right was determined by team discussion to be the most usual performance for this patient during the assessment period. Code of 6 for sit to lying was determined by team discussion to be the most usual performance for this patient during the assessment period. Code of 4 for lying to sitting on side of bed was determined by team discussion to be the most usual performance for this patient during the assessment period.--Zelda Roblero, PD
--- NOTE | 2019-09-18 14:22 | NUR ---
Walker that patient ordered was received. Patient still waiting for , Bety to arrive. He is resting in recliner.
== END 2019-09-18 14:30 | disposition home health service (06) | DRG 947 ==
LOC: MEDICAL 14:24
PROVIDERS: ADMIT Internal Medicine
DX: R53.81 Other malaise (principal); G92 Toxic encephalopathy; E87.2 Acidosis; S82.001D Unspecified fracture of right patella, subsequent encounter for closed fracture with routine healing; I10 Essential (primary) hypertension; G20 Parkinson's disease; E87.6 Hypokalemia; W19.XXXD Unspecified fall, subsequent encounter; Z79.82 Long term (current) use of aspirin; Z87.891 Personal history of nicotine dependence; G89.29 Other chronic pain
CPT/HCPCS: OP; 99222-AI; 99231-AI; 99232-AI; 99239; J1650

== ENCOUNTER → 2019-11-14 | Outpatient (CLI) | payer MEDICARE | LOC: COL.VAS 12:25 | DX: I08.0 Rheumatic disorders of both mitral and aortic valves (principal) ==

== ENCOUNTER 2020-07-09 09:21 | Inpatient (IN) | payer MEDICARE ==
[~2020-07-09] VITALS: Ht 172.7 cm; Wt 70.5 kg
[2020-07-09 10:18] LABS: BASO % 0.3 % (0.0-2.0); EOS # 0.1 (0.0-0.7); EOS % 1.6 % (0-4.0); GRAN # 5.8 (1.4-6.5); GRAN % 74.5 % (42.2-75.2); HEMATOCRIT 40.4 % (42.0-52.0); HEMOGLOBIN 12.6 g/dl (13.5-18.0); LYMPH % 13.5 % (20.0-51.0); MEAN CELL VOLUME 96 fl (80.0-100.0); MEAN CORPUSCULAR HEMOGLOBIN 30 pg (27.0-31.0); MEAN CORPUSCULAR HGB CONC 31 g/dl (33.0-37.0); MEAN PLATELET VOLUME 10.7 fl (7.4-10.4); MONO # 0.8 (0.1-0.6); MONO % 9.7 % (1.7-9.3); PLATELET COUNT 153 K/mm3 (130-400); RED BLOOD COUNT 4.23 M/mm3 (4.20-5.60); REDCELL DISTRIBUTION WIDTH-CV 15.7 % (11.5-14.5)
[2020-07-09 10:29] LABS: ALANINE AMINOTRANSFERASE 6 U/L (4-49); ALKALINE PHOSPHATASE 181 U/L (50-136); ANION GAP 4 mmol/L (7-16); AST,SGOT 19 U/L (15-37); BILIRUBIN,TOTAL 1.1 mg/dL (0.0-1.0); BLOOD UREA NITROGEN 25 mg/dL (9-20); CALCIUM 8.5 mg/dL (8.4-10.2); CARBON DIOXIDE 31 mmol/L (22-30); CHLORIDE 103 mmol/L (98-107); CREATININE, serum 1.13 (0.66-1.25); GLUCOSE 118 mg/dL (74-106); POTASSIUM 4.1 mmol/L (3.4-5.0); SODIUM 138 mmol/L (137-145); TOTAL PROTEIN 6.5 gm/dL (6.4-8.2)
[2020-07-09 10:39] LABS: COLLECTION METHOD CLEAN CATCH
[2020-07-09 10:42] LABS: TROPONIN-I < 0.012 ng/mL (0.000-0.035)
[2020-07-09 10:48] LABS: MUCOUS Present /lpf; PH 5 (5-8); SQUAMOUS EPITHELIAL 0-2 /hpf; URINE APPEARANCE Clear; URINE BACTERIA Rare /hpf; URINE BILIRUBIN Negative (NEGATIVE); URINE BLOOD Negative (NEGATIVE); URINE COLOR Yellow; URINE GLUCOSE Negative (NEGATIVE); URINE KETONE Negative (NEGATIVE); URINE LEUKOCYTE ESTERASE Negative (NEGATIVE); URINE NITRATE Negative (NEGATIVE); URINE PROTEIN(semi-quant) Negative (NEGATIVE); URINE RBC 0-2 /hpf
[2020-07-09] MEDS ORDERED: ARICEPT10 MG PO (13:59)
[2020-07-09] MEDS ORDERED: MOVANTIK25 MG PO (14:00)
[2020-07-09] MEDS ORDERED: NAMENDA 10MG TA10 MG PO (14:00)
[2020-07-09] MEDS ORDERED: REQUIP0.25 MG PO (14:00)
[2020-07-09 14:55] VITALS: BP 134/74; PULSE 70; TEMP 97.8
[2020-07-09] MEDS ORDERED: MOTRIN 800800 MG/TAB PO (15:27)
[2020-07-09 21:04] VITALS: BP 106/69; PULSE 86; TEMP 97.4
[2020-07-10] VITALS (8 sets, daily range): BP systolic 12–156; BP diastolic 71–85; PULSE 64–101; TEMP 97.4–98.3
[2020-07-11 03:27] VITALS: BP 132/76; PULSE 70; TEMP 97.4
[2020-07-11 06:47] LABS: BASO % 0.3 % (0.0-2.0); EOS # 0.2 (0.0-0.7); EOS % 2.5 % (0-4.0); GRAN # 6.2 (1.4-6.5); HEMATOCRIT 39.4 % (42.0-52.0); HEMOGLOBIN 12.1 g/dl (13.5-18.0); LYMPH # 1.6 (1.2-3.4); LYMPH % 17.9 % (20.0-51.0); MEAN CELL VOLUME 98 fl (80.0-100.0); MEAN CORPUSCULAR HEMOGLOBIN 30 pg (27.0-31.0); MEAN CORPUSCULAR HGB CONC 31 g/dl (33.0-37.0); MEAN PLATELET VOLUME 10.9 fl (7.4-10.4); MONO # 0.9 (0.1-0.6); MONO % 9.9 % (1.7-9.3); PLATELET COUNT 172 K/mm3 (130-400); RED BLOOD COUNT 4.04 M/mm3 (4.20-5.60); REDCELL DISTRIBUTION WIDTH-CV 15.7 % (11.5-14.5)
[2020-07-11 07:03] LABS: ALBUMIN 2.7 gm/dL (3.5-5.0); BILIRUBIN,TOTAL 0.7 mg/dL (0.0-1.0); CALCIUM 8.2 mg/dL (8.4-10.2); CREATININE, serum 0.99 (0.66-1.25); POTASSIUM 3.7 mmol/L (3.4-5.0); TOTAL PROTEIN 5.9 gm/dL (6.4-8.2)
[2020-07-11 08:10] VITALS: BP 154/76; PULSE 68; TEMP 97.8
[2020-07-11 15:20] VITALS: BP 98/60; PULSE 87; TEMP 98.1
[2020-07-11 19:19] VITALS: BP 110/75; PULSE 89; TEMP 98.2
[2020-07-11 23:19] VITALS: BP 124/63; PULSE 71; TEMP 97.5
[2020-07-12 04:27] VITALS: BP 133/77; PULSE 73; TEMP 98.2
[2020-07-12 07:33] VITALS: BP 138/76; PULSE 68; TEMP 98.5
[2020-07-12 13:37] VITALS: BP 137/77; PULSE 77; TEMP 98.4
[2020-07-12 17:09] VITALS: BP 119/84; PULSE 75; TEMP 98.1
[2020-07-12 20:09] VITALS: BP 151/89; PULSE 80; TEMP 98.1
[2020-07-12 23:27] VITALS: BP 140/40; PULSE 95; TEMP 98.7
[2020-07-13 03:24] VITALS: BP 130/76; PULSE 82; TEMP 99.2
[2020-07-13 08:03] LABS: BASO % 0.3 % (0.0-2.0); EOS # 0.1 (0.0-0.7); EOS % 0.5 % (0-4.0); GRAN # 8.3 (1.4-6.5); GRAN % 75.9 % (42.2-75.2); HEMOGLOBIN 10.5 g/dl (13.5-18.0); LYMPH # 1.7 (1.2-3.4); LYMPH % 15.9 % (20.0-51.0); MEAN CORPUSCULAR HEMOGLOBIN 30 pg (27.0-31.0); MEAN CORPUSCULAR HGB CONC 32 g/dl (33.0-37.0); MONO # 0.8 (0.1-0.6); MONO % 6.9 % (1.7-9.3); PLATELET COUNT 190 K/mm3 (130-400); REDCELL DISTRIBUTION WIDTH-CV 15.8 % (11.5-14.5)
[2020-07-13 08:11] LABS: HEMATOCRIT 32.6 % (42.0-52.0); MEAN CELL VOLUME 93 fl (80.0-100.0)
[2020-07-13 08:13] LABS: ALBUMIN 2.4 gm/dL (3.5-5.0); BILIRUBIN,TOTAL 0.7 mg/dL (0.0-1.0); CALCIUM 7.8 mg/dL (8.4-10.2); CREATININE, serum 0.82 (0.66-1.25); POTASSIUM 4.2 mmol/L (3.4-5.0); TOTAL PROTEIN 5.4 gm/dL (6.4-8.2)
[2020-07-13 08:15] VITALS: BP 140/75; PULSE 72; TEMP 98.3
[2020-07-13 12:00] VITALS: BP 113/66; PULSE 68; TEMP 98.4
[2020-07-13 15:00] VITALS: BP 115/66; PULSE 66; TEMP 98.5
[2020-07-13 20:23] VITALS: BP 118/71; PULSE 99; TEMP 99.3
[2020-07-13 23:57] VITALS: BP 123/79; PULSE 96; TEMP 99.1
[2020-07-14 03:21] VITALS: BP 133/82; PULSE 87; TEMP 98.3
[2020-07-14 07:47] VITALS: BP 106/67; PULSE 85; TEMP 98.3
[2020-07-14] MEDS ORDERED: DESENEX TP (09:08)
[2020-07-14 09:11] LABS: ALBUMIN 2.8 gm/dL (3.5-5.0); CALCIUM 8.1 mg/dL (8.4-10.2); CREATININE, serum 0.97 (0.66-1.25); POTASSIUM 4.3 mmol/L (3.4-5.0); TOTAL PROTEIN 6.1 gm/dL (6.4-8.2)
[2020-07-14 09:14] LABS: BASO # 0.1 (0.0-0.2); BASO % 0.4 % (0.0-2.0); GRAN # 11.7 (1.4-6.5); GRAN % 87.9 % (42.2-75.2); HEMATOCRIT 38.5 % (42.0-52.0); LYMPH % 7.3 % (20.0-51.0); MEAN CELL VOLUME 93 fl (80.0-100.0); MEAN CORPUSCULAR HEMOGLOBIN 30 pg (27.0-31.0); MEAN CORPUSCULAR HGB CONC 33 g/dl (33.0-37.0); MONO # 0.5 (0.1-0.6); PLATELET COUNT 258 K/mm3 (130-400); RED BLOOD COUNT 4.15 M/mm3 (4.20-5.60); REDCELL DISTRIBUTION WIDTH-CV 15.8 % (11.5-14.5)
[2020-07-14] MEDS ORDERED: MS CONTIN 115 MG/TAB PO (09:15)
[2020-07-14 09:22] LABS: HEMOGLOBIN 12.5 g/dl (13.5-18.0)
[2020-07-14] MEDS ORDERED: EFFEXOR XR37.5 MG/CA PO (09:22)
[2020-07-14 11:39] VITALS: BP 108/52; PULSE 73; TEMP 98.3
[2020-07-14 16:44] VITALS: BP 100/58; PULSE 78; TEMP 98.8
[2020-07-14 19:51] VITALS: BP 92/57; PULSE 70; TEMP 98.3
[2020-07-15 00:32] VITALS: BP 98/79; PULSE 71; TEMP 97.4
[2020-07-15 04:11] VITALS: BP 111/62; PULSE 70; TEMP 97.7
[2020-07-15 07:18] LABS: MEAN CELL VOLUME 95 fl (80.0-100.0); MEAN CORPUSCULAR HGB CONC 32 g/dl (33.0-37.0); MEAN PLATELET VOLUME 10.6 fl (7.4-10.4); PLATELET COUNT 191 K/mm3 (130-400); RED BLOOD COUNT 3.37 M/mm3 (4.20-5.60); REDCELL DISTRIBUTION WIDTH-CV 16.3 % (11.5-14.5)
[2020-07-15 07:24] LABS: HEMATOCRIT 32.1 % (42.0-52.0); HEMOGLOBIN 10.1 g/dl (13.5-18.0); MEAN CORPUSCULAR HEMOGLOBIN 30 pg (27.0-31.0)
[2020-07-15 07:25] LABS: CALCIUM 7.7 mg/dL (8.4-10.2); CREATININE, serum 1.14 (0.66-1.25); POTASSIUM 4.1 mmol/L (3.4-5.0)
[2020-07-15 07:35] VITALS: BP 128/75; PULSE 65; TEMP 98
[2020-07-15 07:50] LABS: BAND 10 % (0-10); EOSINOPHIL 5 % (0-4); HYPOCHROMIA 2+; LYMPHOCYTE 25 % (20.0-51.0); NEUTROPHILS 51 % (42.0-75.2); PLATELET ESTIMATE NORMAL (NORMAL)
[2020-07-15 07:51] LABS: ANISOCYTOSIS 1+
[2020-07-15 11:36] VITALS: BP 145/77; PULSE 100; TEMP 98.3
[2020-07-15 17:01] VITALS: BP 130/69; PULSE 89; TEMP 98.1
[2020-07-15 20:42] VITALS: BP 116/71; PULSE 92; TEMP 99.3
[2020-07-16 00:07] VITALS: BP 114/65; PULSE 81; TEMP 98.3
[2020-07-16 05:03] VITALS: BP 139/67; PULSE 67; TEMP 97.8
[2020-07-16 07:35] LABS: MEAN CELL VOLUME 92 fl (80.0-100.0); MEAN CORPUSCULAR HGB CONC 32 g/dl (33.0-37.0); MEAN PLATELET VOLUME 10.9 fl (7.4-10.4); PLATELET COUNT 222 K/mm3 (130-400); RED BLOOD COUNT 3.25 M/mm3 (4.20-5.60); REDCELL DISTRIBUTION WIDTH-CV 16.3 % (11.5-14.5)
[2020-07-16 08:00] LABS: HEMOGLOBIN 9.7 g/dl (13.5-18.0); MEAN CORPUSCULAR HEMOGLOBIN 30 pg (27.0-31.0)
[2020-07-16 08:04] LABS: CALCIUM 7.5 mg/dL (8.4-10.2); CREATININE, serum 0.98 (0.66-1.25); POTASSIUM 3.5 mmol/L (3.4-5.0)
[2020-07-16 08:38] VITALS: BP 148/69; PULSE 65; TEMP 97.9
[2020-07-16 09:39] LABS: ANISOCYTOSIS 1+; BAND 9 % (0-10); HYPOCHROMIA 1+; LYMPHOCYTE 19 % (20.0-51.0); NEUTROPHILS 66 % (42.0-75.2); PLATELET ESTIMATE NORMAL (NORMAL)
[2020-07-16] MEDS ORDERED: AMOXICILLIN 8751 TAB PO (10:28)
[2020-07-16 12:54] VITALS: BP 148/69; PULSE 65; TEMP 97.9
[2020-09-12] MEDS ORDERED: PRINIVIL40 MG PO (08:09)
[2020-09-12] MEDS ORDERED: EFFEXOR 75M75 MG/TAB PO (08:11)
[2020-09-12] MEDS ORDERED: METHADONE H10 MG/TAB PO (08:12)
[2020-09-12] MEDS ORDERED: NAMENDA 10MG TA10 MG PO (08:13)
[2020-09-12] MEDS ORDERED: MIRTAZAPINE7.5 MG PO (08:14)
[2020-09-12] MEDS ORDERED: TYLENOL 500MG500 MG PO (08:14)
[2020-09-12] MEDS ORDERED: MOTRIN 600600 MG/TAB PO (08:15)
== END 2020-07-16 13:35 | DRG 56 ==
LOC: COL.ER 09:21 → MEDICAL 12:40
PROVIDERS: Emergency Medicine; Family Medicine; Physician Assistant; ADMIT Internal Medicine
DX: G20 Parkinson's disease (principal); J96.01 Acute respiratory failure with hypoxia; J69.0 Pneumonitis due to inhalation of food and vomit; S22.42XA Multiple fractures of ribs, left side, initial encounter for closed fracture; E44.0 Moderate protein-calorie malnutrition; F02.80 Dementia in other diseases classified elsewhere, unspecified severity, without behavioral disturbance, psychotic disturbance, mood disturbance, and anxiety; R62.7 Adult failure to thrive; Z66 Do not resuscitate; S42.302D Unspecified fracture of shaft of humerus, left arm, subsequent encounter for fracture with routine healing; F41.9 Anxiety disorder, unspecified; F32.9 Major depressive disorder, single episode, unspecified; I10 Essential (primary) hypertension; G89.29 Other chronic pain; N40.0 Benign prostatic hyperplasia without lower urinary tract symptoms; K59.03 Drug induced constipation; T40.605A Adverse effect of unspecified narcotics, initial encounter; T40.3X5A Adverse effect of methadone, initial encounter; T42.4X5A Adverse effect of benzodiazepines, initial encounter; Z20.822 Contact with and (suspected) exposure to COVID-19
CPT/HCPCS: 99222-AI; 99232-AI; 99233-AI; 99239; A9284; J1650; J2543; J7030; Q9967

== ENCOUNTER → 2020-09-16 | Outpatient (CLI) | payer MEDICARE ==
[2009-05-07 07:19] VITALS: BP 119/78
[~2020-09-16] VITALS: Ht 172.7 cm; Wt 64.5 kg
[~2020-09-16] MED LIST changes: +AMOXICILLIN 8751 TAB PO; +DESENEX TP; +EFFEXOR 75M75 MG/TAB PO; +EFFEXOR XR37.5 MG/CA PO; +MIRTAZAPINE7.5 MG PO; +MOTRIN 600600 MG/TAB PO; +MOTRIN 800800 MG/TAB PO; +MS CONTIN 115 MG/TAB PO; +PRINIVIL40 MG PO; +REQUIP0.25 MG PO; +TYLENOL 500MG500 MG PO
[2020-09-16 12:07] VITALS: BP 128/85; PULSE 92
--- NOTE | 2020-09-16 12:07 | NUR ---
per pt reports he does not walk and does not bear weight, pt is assisted and wears gait belt for assistance with movement.
[2020-09-16 13:05] VITALS: BP 118/81; PULSE 89
== END ==
LOC: COL.RAD 11:45
DX: M51.36 Other intervertebral disc degeneration, lumbar region (principal)
CPT/HCPCS: J3301

== ENCOUNTER 2021-02-18 16:19 | Observation (INO) | payer MEDICARE ==
[2009-05-07 07:19] VITALS: BP 119/78
[~2021-02-18] VITALS: Ht 172.7 cm; Wt 66.1 kg
[2021-02-18 16:49] LABS: BASO % 0.5 % (0.0-2.0); EOS # 0.5 K/mm3 (0.0-0.7); EOS % 7.7 % (0-4.0); GRAN # 2.7 K/mm3 (1.4-6.5); GRAN % 41.6 % (42.2-75.2); HEMATOCRIT 43.4 % (42.0-52.0); HEMOGLOBIN 13.4 g/dl (13.5-18.0); LYMPH # 2.7 K/mm3 (1.2-3.4); LYMPH % 41.7 % (20.0-51.0); MEAN CELL VOLUME 98 fl (80.0-100.0); MEAN CORPUSCULAR HEMOGLOBIN 30 pg (27.0-31.0); MEAN CORPUSCULAR HGB CONC 31 g/dl (33.0-37.0); MEAN PLATELET VOLUME 11.4 fl (7.4-10.4); MONO # 0.5 K/mm3 (0.1-0.6); MONO % 8.3 % (1.7-9.3); PLATELET COUNT 136 K/mm3 (130-400); RED BLOOD COUNT 4.42 M/mm3 (4.20-5.60)
[2021-02-18 17:08] LABS: ALBUMIN 2.6 gm/dL (3.4-4.8); ALKALINE PHOSPHATASE 223 U/L (0-750); ANION GAP 13 mmol/L (7-16); AST,SGOT 19 U/L (5-34); BILIRUBIN,TOTAL 0.6 mg/dL (0.2-1.2); BLOOD UREA NITROGEN 11 mg/dL (8-26); CALCIUM 8.8 mg/dL (8.4-10.2); CARBON DIOXIDE 24 mmol/L (23-31); CHLORIDE 103 mmol/L (98-107); GLUCOSE 96 mg/dL (70-99); LIPASE 48 U/L (8-78); POTASSIUM 3.8 mmol/L (3.5-4.5); SODIUM 140 mmol/L (136-145); TOTAL PROTEIN 7.5 gm/dL (6.2-8.1)
[2021-02-18 17:09] LABS: ALANINE AMINOTRANSFERASE < 6 U/L (0-55)
[2021-02-18 17:14] LABS: TROPONIN-I < 0.010 ng/mL (0.00-0.033)
--- NOTE | 2021-02-18 18:23 | NUR ---
Flexographic Press Operator was called in and provided support and prayers with spouse of patient.
--- NOTE | 2021-02-18 19:20 | NUR ---
PT TO ROOM 315 PER CART. PT ON COMFORT MEASURES. AT BEDSIDE. PERIODS OF AGONAL RESPIRATIONS. THREADY PULSE.
--- NOTE | 2021-02-19 08:00 | NUR ---
PT'S RIGHT AC IV DID NOT FLUSH, SINCE THE PATIENT HAD A SECOND IV SIGHT IN THE RIGHT WRIST, THE PATIENT'S FAMILY REQUESTED THAT THE RIGHT AC BE REMOVED.
--- NOTE | 2021-02-19 08:50 | NUR ---
Malnutrition risk identified for weight loss. Review of H&P indicate patient transitioned to comfort care. Not appropriate to complete full assessment at this time.
--- NOTE | 2021-02-19 08:55 | NUR ---
I met with Bety Almaguer and her son at bedside. Pt is unresponsive with very irregular respirations including pauses. 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 Bety is a nurse and her son has worked as a MUSIC JOURNALIST. They are aware that he is on comfort care and are asking that he be allowed to here rather than trying to move him. AFter discussion, they would be most comfortable with him staying here but would agree to [facility] if a move must occur. The family is aware that his will likely occur fairly soon.
--- NOTE | 2021-02-19 09:16 | NUR ---
extrusion utility worker met with family after palliative care [facility]. Bety, son Jose and his present at bedside. Educated family on services offered. No needs at this time.
--- NOTE | 2021-02-19 09:21 | NUR ---
Initial visit; Patient's and family thanked Grated Cheese Maker for looking in on patient and offering Spiritual Care to him and his family. Grated Cheese Maker offered God's blessings.
--- NOTE | 2021-02-19 09:44 | NUR ---
PT AWAKE AND RESPONDING TO FAMILY, PT BEGAN TO GRIND JAWS BACK AND FORTH, FAMILY CALLED OUT FOR PAIN MEDICATION. PT IS ALERT AND AWAKE WHEN THIS RN ENTERED THE ROOM, HE WAS TELLING HIS FAMILY "I LOVE YOU". THIS RN ADMINISTERED PAIN MEDICATION WELL ATIVAN PER FAMILY REQUEST. THE PATIENT RESPERATIONS IS CURRENTLY AT 9. WILL RETURN TO MONITOR SHORTLY. FAMILY HAS STATED THEY WOULD CALL IF THERE WAS ANY DRASTIC CHANGE IN STATUS.
--- NOTE | 2021-02-19 09:57 | NUR ---
Comfort care basket ordered and should be delivered to room soon. Comfort quilt provided with explanation as well. Support provided to family. Pt seen with one eye partically open and listening to tell him gooodbye, he does make attempts to communicate. Family requested more morphine for his comfort and this was passed on to Ceci, his primary nurse.
--- NOTE | 2021-02-19 11:43 | NUR ---
In to check on briefly. Thomas provided. Son has stepped out for about an hour and asked that we check in on his Mom during this time. She denies needs at this time and pt is sleeping, respirations remain irregular.
--- NOTE | 2021-02-19 13:17 | NUR ---
Checked in on needs. present at bedside eatting lunch. Son and daughter in law at bedside. No needs at this time.
[2021-02-19 16:17] VITALS: BP 110/62; PULSE 50; TEMP 97.4
--- NOTE | 2021-02-19 19:00 | NUR ---
Pt had a moment of alertness in which he was able to acknowlege his , son and sister telling him they loved him. He was able to respond by mouthing he loved them, however was unable to produce vocal tone. The family remained at bedside for the majority of the day, pt's did stay in the room the entire day and has not left his side. Pt's family received a care basket from palliative care and was very grateful for it. The patient did reduce to between 6-8 respirations per minute with very shallow breathing. Some periods of apnea. Bilateral Upper Extremity swelling is noted. Report given to [facility] for material handler 1st shift.
--- NOTE | 2021-02-19 20:00 | NUR ---
Patient is lying in bed, family in room. He is sleeping, no sings of discomfort. Low shallow respirations 7/min, 2L O2 NC. Bilateral upper extremities with edema, thin skin, multiple bruises. 1 skin laceration in the right upper arm, and another in the right lower arm, both covered with dressing. Laceratio in left ac, covered too. Confort care. No more needs at this time. Call light within reach.
--- NOTE | 2021-02-19 22:23 | NUR ---
Patient woke up. Not able to talk. Family asked for more morphine. PRN provided.
--- NOTE | 2021-02-20 07:04 | NUR ---
Patient had a calm night. Morphine and Ativan PRN provided. All needs met. Shift report given to day nurse.
--- NOTE | 2021-02-20 07:55 | NUR ---
Patient resting in bed upon entry to room. 2L of O2 via nasal cannula in use for comfort. and son at the bedside. states that she visualized patient grimacing and requested morphine be given. Upon assessment patient appeared to be in slight discomfort. PRN morphine and ativan given. Periods of apnea noted. Breathing shallow and labored. Patient repositioned. denies the need for anything further at this time. Encourged to use call light if needs were to arise. Call light in reach.
--- NOTE | 2021-02-20 08:46 | NUR ---
I stopped into to see pt and his family but they are all sleeping soundly. Pt's respirations are shallow with pauses noted. He appears comfortable.
--- NOTE | 2021-02-20 11:55 | NUR ---
Spent time with at bedside. She is tired but wants to remain with her and has been able to sleep in the chair. Pt appears comfortable and relaxed. His respirations are slow with pauses. He appears slightly flushed and puffy.
--- NOTE | 2021-02-20 12:47 | NUR ---
Patient requiring morphine every 1-2 hours. Patient awake at this time. Trying to communicate with . and family deny any further needs at this time. Call light in reach.
--- NOTE | 2021-02-20 12:54 | NUR ---
Patient's family desires move to [facility]. Laura contacted who states that they do not currently have a bed and will not have a bed over the weekend. Patients verbalizes that they are unable to take the patient home for hospice due to environmental factors. is ok with staying in the hospital to continue comfort care. Irena Perales RN notified.
[2021-02-20 16:54] VITALS: TEMP 100.4
--- NOTE | 2021-02-20 17:46 | NUR ---
Patient currently resting in bed surrounded by family. PRN morphine and ativan given. No signs of pain or discomfort at this time. Currently wearing 2L of O2 via nasal cannula for comfort. Mouth swabs availble for comfort as well. Family encouraged to call if they have any needs. Call light in reach.
--- NOTE | 2021-02-20 20:00 | NUR ---
Assessment complete. Patient's and son at bedside. Patient currently appears to be resting comfortably; he withdraws to painful stimuli but is otherwise somnolent. Patient's requests morphine to be administer Q1 hour. Comfort measures provided, will continue to monitor. Call light within reach of patient and family.
--- NOTE | 2021-02-21 07:03 | NUR ---
PATIENT RESTING IN BED AT THIS TIME. AT THE BEDSIDE. NO S/S OF PAIN OR DISCOMFORT AT THIS TIME. DENIES ANY FURTHER NEEDS AT THIS TIME. ENCOURAGED TO CALL IF NEEDS ARISE. CALL LIGHT IN REACH.
--- NOTE | 2021-02-21 08:16 | NUR ---
PRN Ativan and morphine given. Patient has shallow breaths with periods of apnea. 2L of O2 via nasal cannula being worn for comfort. Heart rate irregular. Family denies any further needs at this time. Call light in reach.
--- NOTE | 2021-02-21 18:46 | NUR ---
No changes with patient. PRN ativan and morphine given as scheduled. Patient resting with no S/S of discomfort. resting at the bedside. Call light in reach.
--- NOTE | 2021-02-21 20:00 | NUR ---
Assessment complete. Pt family at bedside. Patient resting; respirations 12 per minute, lungs clear, bowel sounds present, HR irregular rhythm. Patient is warm to touch and no evidence of mottling is noted. Will continue hourly administation of morphine per DPOA request.
--- NOTE | 2021-02-22 07:33 | NUR ---
Patient resting comfortably in bed. No S/S of pain. at the bedside.
[2021-02-22 08:38] VITALS: BP 123/72; PULSE 81; TEMP 99.2
[2021-02-22 17:00] VITALS: BP 142/72; PULSE 73; TEMP 97.5
--- NOTE | 2021-02-22 19:17 | NUR ---
PRN ativan and morphine given per family request. Patient is currently resting in bed. Respirations have begun to become irratic. rattle noted. Patient overall non responsive. Patient changed and repositioned. Family is at the bedside. Family encouraged to ask if any needs arise. Family denies any further needs at this time. Call light in reach.
--- NOTE | 2021-02-23 01:20 | NUR ---
Patient laying in bed comfortably, not responding to verbal or tactile stimulation. Patient appears comfortable. Breathing labored and terminal secretions noted. Patient actively dying. Patient's family in the room. Patient's spouse requesting PRN Morphine to be given Q1-2 hr throughout the night to keep him comfortable. This nurse agreed to the plan. PRN Morphine given Q1-2 hr per family request. PRN Ativan given Q 4hr as well per patient request. Call light in reach. Encouraged patient's family to call the nurse if need anything. Patietn's family agreed to call nurse for any changes or need anything.
--- NOTE | 2021-02-23 05:57 | NUR ---
Notified by family that patient 5:05 am. When this nurse came in the room immediately, patient has no heart beat and no pulses. Called CADE Perez and updated. CADE Perez came to the room and patient's verified with CADE Perez. tufting supervisor updated. Provided comfort to family. Removed IV from right wrist.
--- NOTE | 2021-02-23 06:16 | NUR ---
Acquisition Advisor in the room to provide comfort and prayer. Will obtain home information once family spend enough time with patient.
--- NOTE | 2021-02-23 09:14 | NUR ---
Pt picked up by home at this time.
== END 2021-02-23 09:14 | disposition expired ==
LOC: COL.ER 16:19 → MEDICAL 18:14
PROVIDERS: Emergency Medicine; ADMIT Internal Medicine
DX: I63.9 Cerebral infarction, unspecified (principal); R56.9 Unspecified convulsions; G20 Parkinson's disease; K74.60 Unspecified cirrhosis of liver; G89.29 Other chronic pain; K59.09 Other constipation; N18.30 Chronic kidney disease, stage 3 unspecified; I10 Essential (primary) hypertension; F02.80 Dementia in other diseases classified elsewhere, unspecified severity, without behavioral disturbance, psychotic disturbance, mood disturbance, and anxiety; F32.9 Major depressive disorder, single episode, unspecified; F41.9 Anxiety disorder, unspecified; Z90.89 Acquired absence of other organs; Z99.89 Dependence on other enabling machines and devices; Z20.822 Contact with and (suspected) exposure to COVID-19; Z79.899 Other long term (current) drug therapy
CPT/HCPCS: 99231-AI; G0378; J1100; J1953; J2060; J2270